=== PATIENT | female | born 1990 | race Two or more races ===

== ENCOUNTER 2021-10-12 11:31 | Emergency (ER) | payer SELFPAY ==
[~2021-10-12] VITALS: Ht 157.5 cm; Wt 59.0 kg
[2021-10-12 11:50] VITALS: BP 117/82
[2021-10-12] MEDS ORDERED: KETOROLAC TROMETH 60MG/2ML VIAL IM ONE (12:30)
== END 2021-10-12 13:38 | disposition home or self-care (01) ==
LOC: ER 11:31
DX: S16.1XXA Strain of muscle, fascia and tendon at neck level, initial encounter (principal); Z88.0 Allergy status to penicillin; X58.XXXA Exposure to other specified factors, initial encounter; Y93.89 Activity, other specified; Y92.89 Other specified places as the place of occurrence of the external cause; Y99.8 Other external cause status
CPT/HCPCS: 72040; 93005; 96372; 99283; J1885

== ENCOUNTER 2022-07-12 13:49 | Emergency (ER) | payer MEDICAID ==
[~2022-07-12] VITALS: Ht 157.5 cm; Wt 63.6 kg
[2022-07-12 14:39] VITALS: BP 139/92
[2022-07-12] MEDS ORDERED: KETOROLAC TROMETH 60MG/2ML VIAL IM ONE (15:15)
[2022-07-12] MEDS ORDERED: IBUP800T27 PO (15:34)
== END 2022-07-12 15:49 | disposition home or self-care (01) ==
LOC: ER 13:49
DX: M77.8 Other enthesopathies, not elsewhere classified (principal); Z88.0 Allergy status to penicillin
CPT/HCPCS: 73030; 96372; 99283; J1885